=== PATIENT | female | born 1950 | race Caucasian/White ===

== ENCOUNTER 2022-08-14 10:51 | Emergency (ER) | payer MEDICARE, SELFPAY ==
[2022-08-14 10:51] VITALS: BP 167/81; PULSE 103; RESP 16; TEMP 36.6; O2SAT 97; BMI 29.6
[2022-08-14 11:03] VITALS: BP 146/101; PULSE 102; RESP 15; O2SAT 96
[2022-08-14 11:39] VITALS: O2SAT 97
[2022-08-14 11:40] VITALS: BP 129/68; PULSE 88; RESP 16; O2SAT 96
--- NOTE | 2022-08-14 11:45 | EKG12_ITS ---
Test Reason : PALP Blood Pressure : / mmHG Vent. Rate : 088 BPM Atrial Rate : 088 BPM P-R Int : 136 ms QRS Dur : 072 ms QT Int : 370 ms P-R-T Axes : 042 -12 054 degrees QTc Int : 447 ms Normal sinus rhythm Low voltage QRS Confirmed by VALERIE CAROLINA, JOHN ([id number]), purchasing expeditor LAYA CHRISTINA ([id number]) on 08/16/2022 9:54:55 AM Referred By: Confirmed By:JOHN PADILLA MD
--- NOTE | 2022-08-14 11:51 | EDS_ITS ---
HPI History of Present Illness Chief Complaint: Palpitations Narrative Narrative: 72-year-old female presenting with palpitations. She states this occurred last evening. She states it lasted 3 to 4 minutes. She states it has not returned. Patient reports that she does not have any chest pain or shortness of breath. She has not had a fever, chills, cough. She denies abdominal pain, nausea, vomiting. She states currently she feels otherwise well, this morning however she felt out of sorts. Past medical history of diabetes, hypertension, hyperlipidemia. hypothyroidism. [facility] Medical History Diabetes mellitus GERD (gastroesophageal reflux disease) Hypertension Hypothyroidism Allergy/AdvReac Type Severity Reaction Status Date / Time No Known Allergies Allergy Verified 08/14/22 10:53 Surgical History (Updated 08/14/22 @ 11:05 by Evangelina Champagne) History of surgical removal of meniscus of knee Social History Smoking Status: Never smoker ROS ROS ED Constitutional Constitutional ED: Denies chills or fever(s) Eyes Eyes: Denies change in vision or diplopia ENT ENT ED: Denies rhinorrhea or sore throat Cardiovascular Cardiovascular: Reports palpitations and racing heartbeat; Denies chest pain Respiratory/Chest Respiratory/Chest: Denies cough or dyspnea on exertion Gastrointestinal Gastrointestinal: Denies constipation or diarrhea Genitourinary Genitourinary ED: Denies dysuria or hematuria Musculoskeletal Musculoskeletal: Denies back pain or neck pain Integumentary Denies abscess or Abrasions Neurologic Neurologic: Denies headache(s) or paresthesias Psychiatric Psychiatric: Denies anxiety or depression EXAM Physical Exam Const Vital Signs: 08/14/22 10:51 08/14/22 11:03 08/14/22 11:03 Temperature 97.9 F Temperature Source Temporal Pulse Rate 103 H 102 H Respiratory Rate 16 15 Respiratory Effort Normal Non-Labored Respiratory Pattern Normal Blood Pressure 167/81 H 146/101 H Blood Pressure Mean 109 116 Pulse Ox 97 96 Oxygen Delivery Method Room Air Room Air 08/14/22 11:39 08/14/22 11:40 Temperature Temperature Source Pulse Rate 88 Respiratory Rate 16 Respiratory Effort Respiratory Pattern Blood Pressure 129/68 H Blood Pressure Mean 88 Pulse Ox 97 96 Oxygen Delivery Method Room Air Room Air Positive well nourished General Appearance ED: NAD HEENT Reports moist mucous membranes and dry mucous membranes Mouth ED: Yes dry mucous membranes Mouth: dry mucous membranes Eyes PERRL General Eye ED: Negative for scleral icterus Chest Wall inspection of chest normal Resp normal respiratory effort and clear to auscultation bilaterally Auscultation: Negative for rales, rhonchi or wheezes Cardio regular rhythm Rate: tachycardic GI normal to inspection, nondistended, normoactive bowel sounds Extremity normal to inspection General Extremety ED: Negative for edema General Extremity: Negative for edema Neuro oriented x3 and CN's II-XII intact bilaterally Sensorium / Orientation: alert Psych mental status grossly normal Skin no rashes or lesions noted MDM MDM MDM Narrative Medical decision making narrative: Patient presenting with 4-minute episode of palpitations yesterday. No return of this. She is well-appearing. Initially tachycardic but otherwise her vital signs are stable and she is afebrile. Differential includes but is not limited to ACS, pneumonia, electrolyte abnormality, dehydration, anxiety. She is not having severe symptoms and with only a 4-minute episode yesterday she was very well. CBC to assess white blood cell count, hemoglobin, differential. BMP was used to assess renal function, electrolytes, glucose, anion gap. EKG to assess for dysrhythmia. High-sensitivity troponin and chest x-ray were included as part of cardiac and pulmonary evaluation. EKG on my interpretation is normal sinus rhythm with a ventricular rate of 88 bpm without sign of ischemic change or dysrhythmia. CT interval 136 ms, QRS duration 72 ms, QTc 447 ms. Chest x- ray on my interpretation shows no acute process. Radiologist interpretation agrees. CBC and BMP are unremarkable with exception of a glucose of 177 without anion gap. High-sensitivity was 6. Delta troponin was also 6 so I have a low suspicion for ACS at this point. D-dimer age-adjusted is within normal limits. Patient had a fairly normal work-up here today and I feel she is stable for discharge home. Patient amenable to this plan plan. She will follow-up with her PCP. Return precautions discussed. Impression: 1. Palpitations 2. Tachycardia resolved Lab Data Labs: Laboratory Results - last 24 hr 08/14/22 08/14/22 08/14/22 11:45 11:45 11:45 WBC 9.3 RBC 4.54 Hgb 12.3 Hct 38.3 MCV 84.4 MCH 27.1 MCHC 32.1 RDW Std Deviation 41.6 RDW Coeff of Jeniffer 13.4 Plt Count 256 MPV 10.7 Immature Gran % (Auto) 0.500 Neut % (Auto) 76.3 H Lymph % (Auto) 12.1 L [place] % (Auto) 9.5 Eos % (Auto) 0.6 Baso % (Auto) 1.0 Absolute Neuts (auto) 7.1 Absolute Lymphs (auto) 1.13 Nucleated RBC % 0 D-Dimer Quant (PE/DVT) 0.54 H* Sodium 140 Potassium 4.2 Chloride 105 Carbon Dioxide 24.0 Anion Gap 11 BUN 9 Creatinine 0.73 Estim Creat Clear Calc 45.09 Est GFR (MDRD) Af Amer 101 Est GFR (MDRD) Non-Af 83 BUN/Creatinine Ratio 12.4 Glucose 177 H Calcium 9.7 Troponin I High Sens 6 08/14/22 12:50 WBC RBC Hgb Hct MCV MCH MCHC RDW Std Deviation RDW Coeff of Jeniffer Plt Count MPV Immature Gran % (Auto) Neut % (Auto) Lymph % (Auto) [place] % (Auto) Eos % (Auto) Baso % (Auto) Absolute Neuts (auto) Absolute Lymphs (auto) Nucleated RBC % D-Dimer Quant (PE/DVT) Sodium Potassium Chloride Carbon Dioxide Anion Gap BUN Creatinine Estim Creat Clear Calc Est GFR (MDRD) Af Amer Est GFR (MDRD) Non-Af BUN/Creatinine Ratio Glucose Calcium Troponin I High Sens 6 Radiography Diagnostic Testing: Clinical Impression(s) from Imaging Studies Chest X-Ray 08/14/22 12:20 IMPRESSION: No acute pulmonary process Electronically Signed: Lico Hernandes MD at 12:42 EDT , Discharge Plan Triage Chief Complaint: Palpitations ED Provider: Abhishek Agrawal Dx/Rx/DC Orders Instructions: ED Palpitations Primary Care Provider: Lora Doctor,Out of Referrals: [facility] Doctor,Out of [Primary Care Provider] - Disposition Disposition: Home, Self Care
--- NOTE | 2022-08-14 12:20 | RAD_ITS ---
STUDY: X-RAY CHEST REASON FOR EXAM: Female, 72 years old. Substernal chest pain TECHNIQUE: Single AP portable view of the chest. COMPARISON: None. FINDINGS: EKG leads overlie the chest The lungs are clear and expanded. There is no demonstrated pleural abnormality. Normal size heart. Normal mediastinum and efren. Normal visualized pulmonary arteries. There is atherosclerotic calcification of the aortic arch with tortuosity. There are diffuse degenerative changes of the visualized thoracic spine. Normal visualized ribs, clavicles, and shoulders. There is no demonstrated abnormality of the visualized soft tissue structures of the upper abdomen. RAD/Chest 1 View (Portable) IMPRESSION: No acute pulmonary process Electronically Signed: Lico Hernandes MD at 12:42 EDT ,
[2022-08-14 12:27] LABS: Anion Gap 11 (5-15); BUN 9 mg/dL (7-18); BUN/Creat Ratio 12.4 RATIO (10-20); Calcium,Total 9.7 mg/dL (8.5-10.1); Chloride 105 mmol/L (98-107); Creatinine, Serum 0.73 mg/dL (0.55-1.02); D-Dimer Quantitative (DVT/PE) 0.54 FEU/ug/m (0.27-0.49); EST Glomerular Filtration Rate 83 mL/min (>60); Est Glom Filt Rate - Afr Amer 101 mL/min (>60); Estimated Creatinine Clearance 45.09 ml/min; Glucose 177 mg/dL (74-106); Potassium 4.2 mmol/L (3.5-5.1); Sodium Level 140 mmol/L (136-145); Troponin-I HS (w/2H Reflex) 6 pg/mL (3.0-54.0)
[2022-08-14 12:33] LABS: Absolute Lymphocyte Count 1.13 X10^3/uL (0.83-4.51); Absolute Neutrophil Count 7.1 X10^3/uL (2.0-7.7); Basophil# 0.09 X10^3/uL; Eosinophil# 0.06 X10^3/uL; Eosinophils% 0.6 % (0-5); Hematocrit 38.3 % (37-47); Hemoglobin 12.3 g/dL (12.0-15.0); Lymphocyte # 1.13 X10^3/ul (0.83-4.51); Lymphocyte % 12.1 % (19-41); Mean Corp Hgb Conc 32.1 g/dL (32-36); Mean Corpuscular Hgb 27.1 pg (27.0-32.0); Mean Corpuscular Volume 84.4 fL (81-99); Mean Platelet Vol. 10.7 fl (6.2-12.0); Monocyte# 0.89 X10^3/uL; Monocyte% 9.5 % (0-10); NRBC Flagged by Analyzer 0 % (0-5); Neutrophil # 7.12 X10^3/uL (2.7-7.7); Neutrophil % 76.3 % (47-70); Platelet Count 256 K/mm3 (150-450); RBC Distribution Width CV 13.4 % (11.6-14.6); RBC Distribution Width SD 41.6 fl (35.1-43.9); Red Blood Count 4.54 M/mm3 (4.2-5.4); White Blood Count 9.3 K/mm3 (4.4-11.0)
[2022-08-14 13:12] LABS: Troponin-I HS 6 pg/mL (3.0-54.0)
[2022-08-14 13:31] VITALS: BP 148/56; PULSE 72; RESP 16; O2SAT 96
[2022-08-14 14:04] LABS: Reflex Troponin-HS? (from REC) Y
== END 2022-08-14 13:32 | disposition home or self-care (01) ==
LOC: ED 13:18
PROVIDERS: Emergency Provider Student in an Organized Health Care Education/Training Program; Visit Provider Student in an Organized Health Care Education/Training Program
DX: R00.2 Palpitations (principal)
CPT/HCPCS: 71045; 80048; 84484; 85025; 85379; 93005; 99284; A4216